=== PATIENT | male | born 1945 | race Caucasian/White ===

== ENCOUNTER 2019-01-01 00:14 | Inpatient (IN) | payer MEDICARE, OTHER ==
[2019-01-01] MEDS ORDERED: ASPIRIN 81 MG CHEW TAB PO ONE (00:16)
[2019-01-01] MEDS ORDERED: 0.9 % SODIUM CHLORIDE 1,000 ML IV ONE (00:17)
[2019-01-01] MEDS ORDERED: ONDANSETRON HCL/PF 4 MG/ 2ML VIAL IVP ONE (00:17)
--- NOTE | 2019-01-01 00:24 | ED Physician Documentation ---
General Adult - HISTORIAN Historian: patient - HPI Stated Complaint: GI upset and heartburn with SOA - like last NM Chief Complaint: General Adult Onset: hours (2) Timing: still present Severity: moderate Further Comments: yes (He did eat pizza for dinner and did become nauseated with some shortness of air. He thought this was heartburn realeated to the pizza - although this was just like his last NM in March 2016 where he had stents x 4 . He states that he has a cardiolgoist Dr Bates. He feels his last exam by this physician was about 3 months ago. HE denies any current chest pain. He does report shortness of air and epigastric pain. No radiation) - ROS CONST: no problems - PAST HX Past History: AMI, hypertension Other History: diabetes Type 2 Surgeries/Procedures: cardiac stent Immunizations: UTD Allergies/Adverse Reactions: Allergies Allergy/AdvReac Type Severity Reaction Status Date / Time Penicillins Allergy Verified 04/12/16 00:58 Home Medications: Ambulatory Orders Medication Instructions Recorded Ascorbic Acid [Vitamin C] 500 mg PO D 04/12/16 Aspirin [Adult Low Dose Aspirin EC] 81 mg D 04/12/16 Stewart Flex 1 each D 04/12/16 Cinnamon 1 each D 04/12/16 Glimepiride 2 mg D 04/12/16 Lovastatin 60 mg D 04/12/16 Metformin HCl [GLUCOPHAGE] 1,000 mg BID 04/12/16 [place]-3 Fatty Acids/Fish Oil [Fish 1 each D 04/12/[address] 1,000 mg Softgel] Omeprazole 20 mg D 04/12/16 - SOCIAL HX Smoking History: non-smoker Alcohol Use: none Drug Use: none - FAMILY HX Family History: No - VITAL SIGNS Vital Signs: Vital Signs Temp Pulse Resp BP Pulse Ox 121/73 04/12/16 10:00 - REVIEWED ASSESSMENTS Nursing Assessment Reviewed: Yes Vitals Reviewed: Yes Progress - Progress Progress: 0100: nausea is improved DG 0140: discussed case with Dr Clarke he is agreeable to admission. and pt are agreeable. He states he is actually trying to sleep now feels much better DG 0215: Neb is making him feel less short on air. Denies nausea DG ED Results Lab/Radiology - Radiology Radiology Impressions: Technique: anterior /posterior portable upright Findings: The lung lerma are hyperinflated but clear acute infiltrate. Findings of median sternotomy are present. There is no hilar or mediastinal mass The bony thorax is unremarkable. No pneumothorax or pleural effusion is seen. Impression: No acute pulmonary disease Electronically signed on Jan 01, 2019 12:55:30 AM CDT by: Alek Turpin - Orders Orders: ED Orders Category Date Time Status Continuous EKG monitoring Q30M Care 01/01/19 00:16 Ordered Continuous Pulse Oximetry Q30M Care 01/01/19 00:[address] IV Lock 1T Care 01/01/19 00:16 Ordered CHEST 1VIEW [RAD] Stat Exams 01/01/19 Ordered BNP [NTBNP] Stat Lab 01/01/19 Ordered CBC/PLATELET/DIFF Routine Lab 01/01/19 00:16 Ordered CMP Routine Lab 01/01/19 00:16 Ordered TROPONIN I Stat Lab 01/01/19 00:16 Ordered 0.9 % Sodium Chloride [Normal Saline] 1,000 ml Med 01/01/19 00:17 Ordered IV NOW Aspirin [Candida] Med 01/01/19 00:16 Once 324 mg PO NOW ONE Ondansetron HCl/Pf [Zofran] Med 01/01/19 00:17 Once 4 mg IVP NOW ONE Oxygen Daily Oxygen 01/01/19 00:30 Ordered EKG WITH COMPARISON Stat Ther 01/01/19 00:16 Ordered General Adult Physical Exam - PHYSICAL EXAM GENERAL APPEARANCE: mild distress EENT: eye inspection normal, pharynx normal, no signs of dehydration NECK: normal inspection RESPIRATORY: no resp distress, chest non-tender, breath sounds normal CVS: reg rate & rhythm, heart sounds normal, equal pulses ABDOMEN: soft, normal bowel sounds BACK: normal inspection SKIN: warm/dry, normal color EXTREMITIES: non-tender, normal range of motion, no evidence of injury, no edema NEURO: oriented X3 Discharge Clincal Impression: Shortness of breath, Ruled out for myocardial infarction Nausea & vomiting Qualifiers: Vomiting type: unspecified Vomiting Intractability: unspecified Qualified Code(s): R11.2 - Nausea with vomiting, unspecified Pneumonia Qualifiers: Pneumonia type: due to unspecified organism Laterality: unspecified laterality Lung location: unspecified part of lung Qualified Code(s): J18.9 - Pneumonia, unspecified organism Comments: 0140: discussed case with Dr Clarke he is agreeable to admission DG Condition: Fair Disposition: ADMITTED INPATIENT Decision to Admit: [id number] Date of Decison to Admit: 01/01/19 Decision Time: 01:40
[2019-01-01 00:49] LABS: MEAN CORPUSCULAR HEMOGLOBIN 28.2 pg (28.0-34.0)
[2019-01-01 00:50] LABS: BASOPHILS % 0.4 % (0.0-1.5); EOSINOPHILS % 1.8 % (0.0-6.8); MONOCYTES % 4.5 % (0.0-11.0); NEUTROPHILS # 9.8 # k/uL (1.4-7.7)
--- NOTE | 2019-01-01 01:00 | Diagnostic Imaging Report ---
NILAM CALL [facility] [address] [facility] [address] [place], [place]. [address] Report Submission Date: Jan 01, 2019 12:55:30 AM CDT Patient Study Name: JUAN JOSE ALDRIDGE Date: Jan 01, 2019 12:28:30 AM CDT Modality Type: DX Gender: M Description: CHEST 1VIEW : 43 Institution: [facility] Physician: NILAM CALL Ap portable upright radiographs of the chest Clinical history: Chest pain Technique: anterior /posterior portable upright Findings: The lung lerma are hyperinflated but clear acute infiltrate. Findings of median sternotomy are present. There is no hilar or mediastinal mass The bony thorax is unremarkable. No pneumothorax or pleural effusion is seen. Impression: No acute pulmonary disease Electronically signed on Jan 01, 2019 12:55:30 AM CDT by: Alek PICKERING
[2019-01-01] MEDS ORDERED: IPRATROPIUM/ALBUTEROL SULFATE 3 ML AMPUL.NEB NEB ONE ×2 (01:38→01:53)
[2019-01-01] MEDS ORDERED: methylPREDNISolone SOD SUCC 125 MG/2 ML VIAL IVP ONE (01:39)
[2019-01-01] MEDS ORDERED: AZITHROMYCIN 500 MG VIAL IV ONE (01:50)
[2019-01-01] MEDS ORDERED: methylPREDNISolone SOD SUCC 125 MG/2 ML VIAL ONE (01:53)
[2019-01-01] MEDS ORDERED: 0.9 % SODIUM CHLORIDE 250 ML IV ONE (01:53)
[2019-01-01] MEDS ORDERED: AZITHROMYCIN 500 MG in 0.9 % SODIUM CHLORIDE 250 ML IV SCH ×2 (02:00→03:00)
[2019-01-01] MEDS ORDERED: ONDANSETRON HCL/PF 4 MG/ 2ML VIAL IVP PRN (02:25)
[2019-01-01] MEDS ORDERED: 0.9 % SODIUM CHLORIDE 1,000 ML IV SCH (02:30)
[2019-01-01] MEDS ORDERED: ACETAMINOPHEN 325 MG TABLET PO PRN (02:38)
[2019-01-01 04:28] VITALS: BMI 30.4
[2019-01-01] MEDS: IPRATROPIUM/ALBUTEROL SULFATE 3 ML AMPUL.NEB NEB SCH ×4 (06:23→17:15)
[2019-01-01] MEDS ORDERED: PANTOPRAZOLE SODIUM 40 MG TABLET.DR PO SCH (07:00)
--- NOTE | 2019-01-01 07:04 | Diagnostic Imaging Report ---
NILAM CALL [facility] [address] [facility] [address] [place], [place]. [address] Report Submission Date: Jan 01, 2019 7:00:56 AM CDT Patient Study Name: JUAN JOSE ALDRIDGE Date: Jan 01, 2019 5:44:40 AM CDT Modality Type: DX Gender: M Description: CHEST 2VIEW : 43 Institution: [facility] Physician: NILAM CALL HISTORY: 73-year-old male with swelling of the ankles COMPARISON: Chest x-ray from earlier same day. TECHNIQUE: 2 views of the chest were performed. FINDINGS: There are postoperative changes of median sternotomy. The lungs are hyperexpanded with flattening of the diaphragm on the lateral view. No pneumothorax, new infiltrates, pleural effusions, or pulmonary edema. The heart is not enlarged. IMPRESSION: 1. Pulmonary hyperexpansion without evidence of acute intrathoracic process. 2. Postoperative changes of the heart. Electronically signed on Jan 01, 2019 7:00:56 AM CDT by: Gregg PICKERING
[2019-01-01] MEDS ORDERED: methylPREDNISolone SOD SUCC 40 MG/ML VIAL ONE (07:29)
--- NOTE | 2019-01-01 07:39 | History and Physical Report ---
History of Present Illnes - History of Present Illness Reason for Visit: dyspnea History of Present Illness: 73-year-old white male was a history of coronary artery disease on the night of admission developed some dyspnea and shortness of breath. Patient denies any chest pain. [place] that he had some indigestion similar to when he had a heart attack. Has 4 stints placed at that time. Last saw Dr Bates in Oct and everything was alright. Has not had a heart cath and stress test. Patient has so me nausea and vomiting at home and in the ED. Was given some ASA in the ED last night and felt better. Patient was chilling. Has had a mild productive cough of some brown yellow phlegm. Has a history of CAD, DM, - Past Medical History Cardiac: CAD Pulmonary: denies: Bronchitis, COPD, Pulmonary embolus Gastrointestinal: Other (has never had colonoscopy done). denies: Constipation - Past Surgical History Past Surgical History: Appendectomy, Total Knee Replacement, Other (ehart) - Past Social History Smoke: No (has had 2nd hand smoke) Occupation: retired Alcohol: Rare Drugs: None Lives: With Family Domestic Violence: Negative - Health Maintenance Health Maintenance: Cholesterol Influenza Vaccine: Current for this Influenza Season Pneumonia Vaccine: Yes Resuscitation Status: Resusciation Status Resuscitation Status Full Code - Unable to Obtain History Unable to Obtain: Yes Review of Systems - Review of Systems Constitutional: Fever, Chills Eyes: negative: pain ENT: Other (tinnitis, wears hearing aids). negative: Nose Congestion, Mouth Pain, Mouth Swelling Respiratory: Cough, Shortness of Breath. negative: Hemoptysis, SOB with Excertion Cardiovascular: negative: Chest Pain, Palpitations Gastrointestinal: Nausea, Vomiting. negative: Abdominal Pain, Diarrhea, Constipation Genitourinary: negative: Dysuria, Frequency Musculoskeletal: negative: Back Pain Skin: negative: Rash Neurological: negative: Weakness, Numbness, Incoordination - Medications/Allergies Allergies/Adverse Reactions: Allergies Allergy/AdvReac Type Severity Reaction Status Date / Time Penicillins Allergy Verified 04/12/16 00:58 Current Inpatient Medications: Current Inpatient Medications Acetaminophen (Tylenol) 650 mg PO Q6H PRN PRN Reason: Fever >101 Albuterol/Ipratropium (Duoneb) 3 ml NEB Q4 ITZ Last Admin: 01/01/19 06:23 Dose: 3 ml Enoxaparin Sodium (Lovenox) 40 mg SQ DAILY [facility] Stop: 01/15/19 08:59 Glimepiride (Amaryl) 2 mg PO D [facility] Azithromycin 500 mg/ Sodium (Chloride) 250 mls @ 125 mls/hr IV Q24H [facility] Stop: 01/11/19 01:59 Last Admin: 01/01/19 04:07 Dose: 125 mls/hr Azithromycin 500 mg/ Sodium (Chloride) 250 mls @ 125 mls/hr IV Q24H [facility] Stop: 01/11/19 02:59 Last Admin: 01/01/19 04:07 Dose: Not Given Methylprednisolone Sodium Succinate 60 mg/ Sodium Chloride 100.96 mls @ 100.96 mls/hr IV Q12 [facility] Sodium Chloride (Normal Saline) 1,000 mls @ 100 mls/hr IV Q10H [facility] Last Admin: 01/01/19 04:07 Dose: 100 mls/hr Metformin HCl (Glucophage) 1,[address] [place] [address] [facility] Miscellaneous (Chem Sticks) 1 each MC CHEMQ [facility] Last Admin: 01/01/19 06:33 Dose: 1 each Ondansetron HCl (Zofran) 4 mg IVP Q6H PRN PRN Reason: Nausea / Vomiting Pantoprazole Sodium (Protonix) 40 mg PO 0700 [facility] Last Admin: 01/01/19 06:23 Dose: 40 mg Simvastatin (Zocor) 40 mg PO [facility] Exam - Exam Vital Signs: Vital Signs (72 hours) 01/01/19 01/01/19 01/01/19 00:16 00:46 01:16 Temperature Pulse Rate 94 H 94 H 95 H Pulse Rate [ Left] Respiratory Rate Blood Pressure [Left Arm] O2 Sat by Pulse 94 94 97 Oximetry 01/01/19 01/01/19 01/01/19 01:30 02:00 02:20 Temperature Pulse Rate 94 H 94 H Pulse Rate [ Left] Respiratory Rate Blood Pressure [Left Arm] O2 Sat by Pulse 97 97 97 Oximetry 01/01/19 01/01/19 01/01/19 02:24 02:39 03:20 Temperature 99.6 F 99.6 F Pulse Rate 96 H Pulse Rate [ 58 L 58 L Left] Respiratory 20 18 Rate Blood Pressure 123/68 123/68 [Left Arm] O2 Sat by Pulse 97 97 Oximetry 01/01/19 01/01/19 04:00 06:00 Temperature 99.7 F H Pulse Rate 98 H 96 H Pulse Rate [ 101 H Left] Respiratory 20 Rate Blood Pressure 116/63 [Left Arm] O2 Sat by Pulse 97 97 Oximetry General: Alert, Oriented to Person, Oriented to Place, Oriented to Time, Cooperative HEENT: Atraumatic, PERRLA, EOMI, Mouth Mucous membr. moist/[place], Dentition Normal Neck: Normal Range of Motion. No: Lymphadenopathy Carotids: WNL Thyroid: WNL Lungs: Rales (few scattered on the right) Cardiovascular: Regular rate, Normal S1, Normal S2, No murmurs Abdomen: Normal bowel sounds, Soft, No tenderness, No hepatospenomegaly Integumentary: Normal, [place], Warm, Dry Extremities: No cyanosis, No edema, Normal pulses Neurological: Normal gait, Normal speech, Strength Equal Bilat, Normal tone, Sensation intact, Cranial nerves 3-12 NL, Reflexes 2+ Psych/Mental Status: Mental status NL, Mood NL, Appropriate Affect, Intact Judgment - Laboratory Results Laboratory Results: Laboratory Results 01/01/19 01/01/19 01/01/19 00:25 00:25 00:25 WBC 11.40 RBC 4.29 Hgb 12.1 Hct 37.0 MCV 86.0 MCH 28.2 MCHC 32.6 RDW 15.7 H Plt Count 206 Neut % (Auto) 85.8 H Lymph % (Auto) 7.5 L [place] % (Auto) 4.5 Eos % (Auto) 1.8 Baso % (Auto) 0.4 Neut # (Auto) 9.8 H Lymph # (Auto) 0.9 [place] # (Auto) 0.5 Eos # (Auto) 0.2 Baso # (Auto) 0.1 Sodium 137 Potassium 4.3 Chloride 102 Carbon Dioxide 25 BUN 23 H Creatinine 1.50 H Estimated Creat Clear 51 Est GFR ( Amer) 59 L Est GFR (Non-Af Amer) 49 L Glucose 257 H Calcium 9.9 Total Bilirubin 0.5 AST 22 ALT 23 Alkaline Phosphatase 71 Troponin I < 0.012 L NT-Pro-B Natriuret Pep 392.0 H Total Protein 8.0 Albumin 4.2 01/01/19 04:00 WBC RBC Hgb Hct MCV MCH MCHC RDW Plt Count Neut % (Auto) Lymph % (Auto) [place] % (Auto) Eos % (Auto) Baso % (Auto) Neut # (Auto) Lymph # (Auto) [place] # (Auto) Eos # (Auto) Baso # (Auto) Sodium Potassium Chloride Carbon Dioxide BUN Creatinine Estimated Creat Clear Est GFR ( Amer) Est GFR (Non-Af Amer) Glucose Calcium Total Bilirubin AST ALT Alkaline Phosphatase Troponin I < 0.012 L NT-Pro-B Natriuret Pep Total Protein Albumin VTE Assessment - RISK FACTOR SCORE VTE RISK FACTOR SCORES: AGE OVER 60 YEARS
[2019-01-01] MEDS: metFORMIN HCl 500 MG TABLET PO SCH ×2 (07:46→17:15)
[2019-01-01 08:52] LABS: MEAN CORPUSCULAR HEMOGLOBIN 28.4 pg (28.0-34.0)
[2019-01-01 08:56] LABS: EOSINOPHILS % 0 % (0-7); MONOCYTES % 0 % (0-11); SEGMENTED NEUTROPHILS % 81 % (39-79)
[2019-01-01] MEDS ORDERED: GLIMEPIRIDE 2 MG TABLET PO SCH (09:00)
[2019-01-01] MEDS ORDERED: METHYLPREDNISOLONE SOD SUCC IV SCH (09:00)
[2019-01-01] MEDS ORDERED: SODIUM CHLORIDE 0.9% IV SCH (09:00)
[2019-01-01] MEDS ORDERED: ENOXAPARIN SODIUM 40 MG/0.4 ML DISP.SYRIN SQ SCH (09:00)
[2019-01-01] MEDS ORDERED: methylPREDNISolone SOD SUCC 40 MG/ML VIAL IVP SCH (09:00)
[2019-01-01 09:23] LABS: eGFR (Non-African) 54
[2019-01-01 13:25] VITALS: BP 117/43
[2019-01-01 16:15] LABS: MEAN CORPUSCULAR HEMOGLOBIN 28.9 pg (28.0-34.0)
[2019-01-01 16:30] LABS: MONOCYTES % 1 % (0-11); PLT EST. EST. AGREES W/PLT CT; SEGMENTED NEUTROPHILS % 96 % (39-79)
[2019-01-01] MEDS ORDERED: SALINE FLUSH 10 ML DISP.SYRIN IV SCH (21:00)
[2019-01-01] MEDS ORDERED: SIMVASTATIN 40 MG TABLET PO SCH (21:00)
[2019-01-02] MEDS ORDERED: GLIMEPIRIDE 2 MG TABLET PO SCH (07:30)
--- NOTE | 2019-01-26 08:11 | Discharge Summary ---
Discharge Summary - Discharge [facility] Admission Date: 01/01/19 (Obs) Discharge Date: 01/01/19 (Home) History of Present Illness: 73-year-old white male was a history of coronary artery disease on the night of admission developed some dyspnea and shortness of breath. Patient denies any chest pain. [place] that he had some indigestion similar to when he had a heart attack. Has 4 stints placed at that time. Last saw Dr Bates in Oct and everything was alright. Has not had a heart cath and stress test. Patient has some nausea and vomiting at home and in the ED. Was given some ASA in the ED last night and felt better. Patient was chilling. Has had a mild productive cough of some brown yellow phlegm. Has a history of CAD, DM, Condition at Discharge: Stable Home Medications: Ambulatory Orders Medication Instructions Recorded Ascorbic Acid [Vitamin C] 500 mg PO D 04/12/16 Aspirin [Adult Low Dose Aspirin EC] 81 mg D 04/12/16 Stewart Flex 1 each D 04/12/16 Cinnamon 1 each D 04/12/16 Glimepiride 2 mg D 04/12/16 Lovastatin 60 mg D 04/12/16 Metformin HCl [GLUCOPHAGE] 1,000 mg BID 04/12/16 [place]-3 Fatty Acids/Fish Oil [Fish 1 each D 04/12/[address] 1,000 mg Softgel] Omeprazole 20 mg D 04/12/16 Azithromycin [Zithromax] 250 mg PO DAILY #4 tablet 01/01/19 Consultations this Visit: None Procedures this Visit: None Allergies/Adverse Reactions: Allergies Allergy/AdvReac Type Severity Reaction Status Date / Time Penicillins Allergy Verified 04/12/16 00:58 Discharge Summary: Patient had serial EKG since serial troponin level drawn. Troponin levels remained within normal limits. There is no acute ischemic changes noted to the EKG. It was felt that the patient could be discharged home safely and managed on an outpatient basis. Patient with discharged in stable condition.
== END 2019-01-01 17:30 | disposition home or self-care (01) | DRG 313 ==
LOC: ED 00:14 → SOUTH 02:18
PROVIDERS: ADMIT Family Medicine; ATTEND Family Medicine
DX: R07.89 Other chest pain (principal); R11.2 Nausea with vomiting, unspecified; E11.9 Type 2 diabetes mellitus without complications; I10 Essential (primary) hypertension; I25.2 Old myocardial infarction
CPT/HCPCS: 71045; 71046; 80053; 83880; 84484; 85025; 85379; 87040; 94640; 96374; 99234; 99284; J0456; J1650; J2405; J2920; J2930; J7050; J1030; J7030; S1016

== ENCOUNTER 2019-01-02 08:33 | Outpatient (CLI) | payer OTHER ==
[2019-01-01 13:25] VITALS: BP 117/43
[2019-01-02 09:50] LABS: MEAN CORPUSCULAR HEMOGLOBIN 29.1 pg (28.0-34.0)
[2019-01-02 09:51] LABS: HYPOCHROMASIA 2+ (NEGATIVE); MONOCYTES % 4 % (0-11); PLT EST. EST. AGREES W/PLT CT; SEGMENTED NEUTROPHILS % 82 % (39-79)
== END 2019-01-02 08:35 ==
LOC: LAB 08:33
PROVIDERS: ATTEND Family Medicine
DX: D64.9 Anemia, unspecified (principal)
CPT/HCPCS: 36415; 82270; 85025